=== PATIENT | female | born 1985 | race Caucasian/White ===

== ENCOUNTER 2017-10-28 15:13 | Emergency (ER) | payer MEDICARE ==
[~2017-10-28] VITALS: Ht 165.1 cm; Wt 87.0 kg
[2017-10-28 15:23] VITALS: BP 126/80
== END 2017-10-28 15:52 | disposition home or self-care (01) ==
LOC: ED 15:46
DX: K08.89 Other specified disorders of teeth and supporting structures (principal); F41.9 Anxiety disorder, unspecified
CPT/HCPCS: 99283